=== PATIENT | female | born 1990 | race Hispanic/Latino ===

== ENCOUNTER 2025-03-07 10:18 | Inpatient (IN) | payer MEDICAID, OTHER, SELFPAY ==
[2025-03-07 10:39] VITALS: BMI 36.3
[2025-03-07] MEDS ORDERED: hydrALAZINE 20 MG/ML VIAL SLOW IVP PRN ×2 (10:57→15:16)
[2025-03-07] MEDS ORDERED: Carboprost 250 MCG/ML AMP IM PRN (10:57)
[2025-03-07] MEDS ORDERED: Ondansetron PF 4 MG/2 ML Vial IVP PRN ×4 (10:57→15:16)
[2025-03-07] MEDS ORDERED: Famotidine/PF 20 mg/2ml Vial SLOW IVP PRN (10:57)
[2025-03-07] MEDS ORDERED: Methylergonovine 0.2 MG/ML VIAL IM PRN (10:57)
[2025-03-07] MEDS ORDERED: Bicitra 30 ML UDCUP PO PRN (10:57)
[2025-03-07] MEDS ORDERED: Diphenoxylate HCl/Atropine Tablet PO PRN (10:57)
[2025-03-07] MEDS ORDERED: Tranexamic Acid 1,000 MG/10 ML VIAL IVP PRN (10:57)
[2025-03-07] MEDS ORDERED: Oxytocin 30 units/NS 500 ML 500 ML IV SCH (11:00)
[2025-03-07 11:26] LABS: Hematocrit 31.0 % (34.9-44.5); Hemoglobin 10.7 g/dL (12.0-15.5); Mean Corpuscular Hemoglobin 30.0 pg (27.0-33.0); Mean Corpuscular Volume 86.8 fL (81.6-98.3); Platelet Count 136 10x3/uL (150-450); Red Blood Cell (RBC) Count 3.57 10x6/uL (3.90-5.03); White Blood Cell (WBC) Count 4.83 10x3/uL (3.5-10.5)
[2025-03-07 12:03] LABS: Syphilis Antibody Index 0.06 S/CO (<1.00 Non-Reactive)
[2025-03-07 12:05] LABS: Hep B Surf Ag - L&D Non-Reactive S/CO (NonReactive)
[2025-03-07] MEDS ORDERED: Meperidine HCl/PF 25 MG (1 mL) VIAL SLOW IVP PRN (14:27)
[2025-03-07] MEDS ORDERED: diphenhydrAMINE 50 MG/ML VIAL IVP PRN (14:27)
[2025-03-07] MEDS ORDERED: Ketorolac Tromethamine 30 MG (1 mL) VIAL IVP PRN (14:27)
[2025-03-07] MEDS ORDERED: Ketorolac Tromethamine 30 MG (1 mL) VIAL IVP SCH (14:30)
[2025-03-07] MEDS ORDERED: Communication Order-Pharmacy FS SCH (14:30)
[2025-03-07] MEDS ORDERED: Bisacodyl 10 MG SUPP PR PRN (15:16)
[2025-03-07] MEDS ORDERED: diphenhydrAMINE 25 MG CAP PO PRN (15:16)
[2025-03-07] MEDS ORDERED: Lanolin Ointment 7 GM TUBE TOP PRN (15:16)
[2025-03-07] MEDS: Oxytocin 10 UNITS/ML VIAL ONE (18:35)
[2025-03-07] MEDS: Dexamethasone 10 MG/ML VIAL ONE (18:35)
[2025-03-07] MEDS: Ondansetron PF 4 MG/2 ML Vial ONE (18:35)
[2025-03-07] MEDS: CEFAZOLIN 2 GM VIAL ONE (18:35)
[2025-03-07] MEDS: Boostrix 0.5 ML (Tdap) VIAL (>/=7 yrs of age) IM ONE (18:36)
[2025-03-07] MEDS: PHENYLEPHRINE-NS 100 MCG/ML 10 ML SYRINGE ONE (18:36)
[2025-03-07] MEDS: Ketorolac Tromethamine 30 MG (1 mL) VIAL IVP SCH (20:31)
[2025-03-08] MEDS ORDERED: Meperidine HCl/PF 25 MG (1 mL) VIAL IM PRN (02:30)
[2025-03-08 03:13] LABS: Hematocrit 28.4 % (34.9-44.5); Hemoglobin 9.6 g/dL (12.0-15.5); Mean Corpuscular Hemoglobin 29.8 pg (27.0-33.0); Mean Corpuscular Volume 88.2 fL (81.6-98.3); Platelet Count 168 10x3/uL (150-450); Red Blood Cell (RBC) Count 3.22 10x6/uL (3.90-5.03); White Blood Cell (WBC) Count 9.14 10x3/uL (3.5-10.5)
[2025-03-08] MEDS: HYDROcodone/Acetaminophen 5/325 mg Tablet PO PRN ×2 (06:50→10:19)
[2025-03-08] MEDS: Ferrous Sulfate 325 MG TAB PO SCH (07:06)
[2025-03-08] MEDS: Simethicone Chewable 80 MG TAB PO PRN (10:19)
[2025-03-08] MEDS: Ibuprofen 800 MG TAB PO SCH (14:03)
[2025-03-09 20:28] VITALS: BP 118/66; TEMP 98.1
[2025-03-09] MEDS: Milk Of Magnesia 30 ML UDCUP PO SCH (21:01)
== END 2025-03-10 18:05 | disposition home or self-care (01) | DRG 788 ==
LOC: CSHLD 10:18 → CSHPP 15:14
PROVIDERS: ADMIT Family Medicine; ATTEND Family Medicine
PROC: 10D00Z1 Extraction of Products of Conception, Low, Open Approach (ICD-10-PCS; principal; 2025-03-07)
PROC: 0U910ZZ Drainage of Left Ovary, Open Approach (ICD-10-PCS; 2025-03-07)
PROC: 4A1HXCZ Monitoring of Products of Conception, Cardiac Rate, External Approach (ICD-10-PCS; 2025-03-07)
DX: O34.211 Maternal care for low transverse scar from previous cesarean delivery (principal); O99.284 Endocrine, nutritional and metabolic diseases complicating childbirth; O34.83 Maternal care for other abnormalities of pelvic organs, third trimester; N83.202 Unspecified ovarian cyst, left side; O48.0 Post-term pregnancy; E03.9 Hypothyroidism, unspecified; Z37.0 Single live birth; Z79.899 Other long term (current) drug therapy; Z79.82 Long term (current) use of aspirin; Z3A.40 40 weeks gestation of pregnancy
CPT/HCPCS: 36415; 51702; 85027; 86780; 86850; 86900; 86901; 87340; C1889; J1100; J1885; J2274; J2405; J2590